=== PATIENT | male | born 1965 | race Caucasian/White ===

== ENCOUNTER → 2018-10-13 | Outpatient (CLI) | payer OTHER | LOC: EDUNIT# → M.CT 07:26 | DX: K43.2 Incisional hernia without obstruction or gangrene (principal); R91.8 Other nonspecific abnormal finding of lung field; R16.0 Hepatomegaly, not elsewhere classified ==

== ENCOUNTER → 2018-10-17 | Day surgery (SDC) | payer OTHER ==
--- NOTE | 2018-10-21 14:11 | PATH ---
[facility] [address] [place] [address] PATHOLOGY RPT PROCEDURE Name: BEATRICE SUN Room: [facility] M.R.#: [id number] Admission: 10/17/18 Date of : 65 Discharge: Report #: [id number] Path Case #: [id number] [facility] Accession Number: [id number] . 01 Material submitted: . PART A: back - MID BACK CYST. Modifiers: mid PART B: back - LEFT LATERAL BACK CYST. Modifiers: left, lateral PART C: back - RIGHT UPPER BACK CYST. Modifiers: right, upper . 01 Clinical history: . Mass on back x3. . 02 Diagnosis: A. Mid back cyst: - Benign skin with large epidermal inclusion cyst. . B. Left lateral back cyst: - Benign skin with epidermal inclusion cyst. . C. Right upper back: - Benign skin with epidermal inclusion cyst. . (KIRSTEN:gabriel; 10/20/2018) QL/10/20/2018 . 02 Electronically signed: . Pedro Samson MD, Pathologist NPI- [id number] . 01 Gross description: . A. Received in formalin labeled "Beatrice Sun, mid back cyst" is an intact duncan-yellow cystic structure measuring 4.9 x 3.8 x 2.6 cm, which has an attached ellipse of duncan-white skin on one aspect measuring 3.8 x 0.5 x 0.4 cm. Upon sectioning, the cyst contains duncan-white grumous material. A solar sales representative section is submitted in cassette A1. . B. Received in formalin labeled "Beatrice Sun, left lateral back cyst" is an ellipse of duncan-white skin and underlying soft tissue measuring 1.4 x 1.0 x 0.9 cm. The specimen is sectioned to reveal a duncan-white cystic structure measuring 0.9 x 0.7 x 0.7 cm, which contains duncan-white grumous material. The specimen is submitted entirely in cassette B1. . C. Received in formalin labeled "Beatrice Sun, right upper back" is an ellipse of duncan-white skin and underlying soft tissue measuring 1.5 x 0.9 x 0.7 cm. Upon sectioning, the cut surface displays a duncan-white cystic structure measuring 1.3 x 0.5 x 0.5 cm. The cyst contains duncan-white grumous material. The specimen is submitted entirely in cassette C1. ([facility] [place]; 10/19/2018) [place] [address] PATHOLOGY RPT PROCEDURE Name: BEATRICE SUN Room: [facility]#: [id number] Admission: 10/17/18 Date of : 65 Discharge: Report #: [id number] Path Case #: [id number] SYC/SYC . 02 Pathologist provided ICD-10: L72.0 . 02 CPT . 867381, 341911, 038838 Specimen Comment: A courtesy copy of this report has been sent to Specimen Comment: [phone], . Specimen Comment: Report sent to / DR MONSON Performed at: 01 [facility] [address], [place], [place] [id number] MD Joey Mccann MD Phone: [phone] Performed at: 02 [facility] [address], [place], [place] [id number] MD Pedro Samson MD Phone: [phone]
--- NOTE | 2018-10-22 16:17 | OP ---
[address] [address] OPERATIVE REPORT Name: BEATRICE GENTILE Room: [facility]..#: [id number] Admission: 10/17/18 Attend Phys: Maria Fernanda Bowman DO Discharge: Date of : 65 Report #: [id number] THIS REPORT FOR: //name// CC: Maria Fernanda Valentine DATE OF SERVICE: 10/17/2018 DICTATING FOR: Maria Fernanda Bowman DO AGE: A 53-year-old male. PREOPERATIVE DIAGNOSIS: Back masses x 3. POSTOPERATIVE DIAGNOSIS: Epidermal inclusion cyst x 3 back. PRIMARY SURGEON: Maria Fernanda Bowman DO CITY SUPERINTENDENT: Alessio Zavala DO, PGY3 and Chandler Espinal DO, PGY4. OPERATION PERFORMED: Excision of back cyst x 3. ANESTHESIA TYPE: General and local. ESTIMATED BLOOD LOSS: 10. SPECIMEN REMOVED: Cyst x 3. COMPLICATIONS: None. FINDINGS: Mid back cyst 5 x 3.5 x 3 cm, incision 4 cm, depth of dissection to muscle fascia; left lower back cyst 1 x 0.5 x 0.5 cm, incision 1 cm, depth of dissection through dermis; right upper back cyst 1 x 0.5 x 1 cm, incision 1 cm, depth of dissection to subcutaneous tissue. INDICATION FOR PROCEDURE: The patient is a pleasant 53-year-old male who presented to the office with a chief complaint of enlarging back cysts. The patient had these present for a while and noticed to be painful and tender with pressure when lying. Recommended outpatient surgical excision. Full discussion of procedure, alternatives, risks, possible complications discussed include but not limited to bleeding, infection, postoperative pain, scarring, recurrence, need for further surgery, malignant pathology and anesthesia risks. The patient voiced understanding of these risks and agreed to proceed with surgery. OPERATIVE TECHNIQUE: The patient was again seen and examined in preoperative holding. Fully informed written consent was [place] [address] OPERATIVE REPORT Name: BEATRICE GENTILE Room: [facility].#: [id number] Admission: 10/17/18 Attend Phys: Maria Fernanda Bowman DO Discharge: Date of : 65 Report #: [id number] were given. The patient was subsequently transported to the operating room suite. General anesthesia was then induced on patient cart. Once this was performed, general endotracheal intubation was successful as well. The patient was placed prone on to the operating room table with gel pads to support the chest. Arms were placed out on arm boards. The patient was prepped and draped using standard sterile fashion. Time-out was performed prior to onset of procedure. We began by making a vertical incision over the mid upper back cyst. Cyst capsule was noted to be just deep to the dermis. Dissection was carried out circumferentially using a 15 blade scalpel and electrocautery. Once we reached the level of the base, the base was ligated across with electrocautery. Specimen was noted to be 5 x 3.5 x 3 cm and was passed off the back table to be sent for permanent pathology. Next, at the right upper back cyst, an elliptical incision was made using a 15 blade scalpel and electrocautery was circumferentially dissected out and ligated across the base. This specimen measured 1 x 0.5 x 1 cm. Finally, at the left lower back cyst, an elliptical incision was made and dissection was carried circumferentially around the cyst until the base was reached. This was ligated across. Once all 3 specimens were obtained, final specimen was 1 x 0.5 x 0.5 cm. The left lower back cyst was closed with 2 interrupted 4-0 Monocryls. The right upper back cyst was closed with 3 interrupted nylon sutures and the mid back cyst was closed in layered fashion with 3-0 Vicryl of the deep subcutaneous and dermal layers. The skin was then closed with a running 4-0 Monocryl and an additional 3 interrupted nylons were placed. The patient tolerated the procedure well. A 50 mL of 0.5% Marcaine were used in total for local anesthetic. The skin was cleansed with wet and dry lap. Sterile dressings applied. Mastisol, Steri-Strips, 4 x 4's, and Tegaderms. The patient tolerated the procedure well and was extubated in the OR, transferred back to PACU in stable condition after a brief recovery from anesthesia. PLAN: Discharged home. Follow up in the office with Dr. Bowman in 1 week. <ELECTRONICALLY SIGNED> By: Abbe Zavala DO 10/22/18 1617 [id number] Zavala DO /nt
== END | disposition home or self-care (01) ==
LOC: M.SUR
DX: L72.0 Epidermal cyst (principal); Z98.890 Other specified postprocedural states; Z88.0 Allergy status to penicillin